=== PATIENT | male | born 1990 | race African-American/Black ===

== ENCOUNTER 2016-11-16 10:43 | Emergency (ER) | payer OTHER ==
[~2016-11-16] VITALS: Ht 170.2 cm; Wt 86.2 kg
--- NOTE | 2016-11-16 11:17 | PHYS DOC ---
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 Pt states L groin pain x 3 days radiating to testicle. Had to pass PT test last week, has had dramatic increase in physical activity recently. Denies feeling a pop in groin, pain primarily when pt first gets out of bed, with bearing down/coughing/lifting, sx are relieved completely with supine position. No urine or bowel sx, no testicular skin changes. Pt feels "swollen" at times left groin. OTC meds not helping, no penile discharge/dysuria no known injury. Timing/Duration: other (3 days intermittent) Severity/Quality: moderate, aching, throbbing Location: groin Radiation: scrotal Activities at Onset: physical activity Prior Genitourinary Problems: none (R torsion s/p removal) Modifying Factors: worse with breathing, worse with coughing, worse with defecating, worse with exercise, improves with lying down, worse with palpation , improves with rest Associated Symptoms: other Allergies: Coded Allergies: No Known Drug Allergies (Unverified , 03/28/16) Past Medical History Medical History: other (R testicular torsion s/p removal) Surgical History: other Social History Smoker: non-smoker Alcohol: none Drugs: none Review of Systems Constitutional: denies chills, denies fever Respiratory: denies cough, denies shortness of breath Cardiovascular: denies chest pain, denies palpitations Gastrointestinal: see HPI, denies diarrhea, denies nausea, denies vomiting Genitourinary: see HPI Musculoskeletal: denies back pain, denies joint swelling, denies neck pain Psychiatric/Neurological: denies headache, denies numbness, denies paresthesia Physical Exam General Appearance: WD/WN, no apparent distress Neck: non-tender, supple Cardiovascular/Respiratory: normal peripheral pulses, no respiratory distress Gastrointestinal: normal bowel sounds, non tender, soft Male Genitals: normal genitalia, hernia mass (reducible left side with TTP), other (no "blue dot" or testicular TTP) Back: no CVA tenderness, no vertebral tenderness Extremities: non-tender, normal inspection Neurologic/Psychiatric: alert, normal mood/affect, oriented x 3 Skin: normal color, warm/dry Orders, Labs, Meds I discussed need for surgical consult. Discussed s/s to monitor, indications to return. See departure instructions. Departure Time of Disposition: 11:13 Disposition: 01 HOME, SELF-CARE Diagnosis: reducible left inguinal hernia Condition: STABLE Patient Instructions: Inguinal Hernia, Adult Additional Instructions: No physical exertion or workouts, no lifting greater than 15 pounds until cleared by General Surgeon. Please review the patient education materials re: hernia. OTC ibuprofen as needed. Rx: norco 5mg #10 (increase fluids and take OTC stool softeners to avoid constipation) Due to constraints I am unable to refer you to a general surgeon. Please follow up today at [facility] with these discharge instructions to schedule General Surgery evaluation. Return to ED with new or changing symptoms, and specifically if the discomfort may not be relieved with positional changes as discussed. CHLOE COLLAZO DO Nov 16, 2016 11:17
[2016-11-16] MEDS ORDERED: HYDR-971 PO (11:18)
[2016-11-16 11:25] VITALS: BP 104/59
== END 2016-11-16 11:34 | disposition home or self-care (01) ==
LOC: ER 10:43
DX: K40.90 Unilateral inguinal hernia, without obstruction or gangrene, not specified as recurrent (principal)
CPT/HCPCS: 99283

== ENCOUNTER 2017-10-18 17:01 | Emergency (ER) | payer OTHER ==
[~2017-10-18] VITALS: Ht 170.2 cm; Wt 83.9 kg
[2017-10-18 17:01] VITALS: BP 126/61
[~2017-10-18 17:01] MED LIST: HYDR-971 PO
--- NOTE | 2017-10-18 18:05 | ED.ADGEN ---
Past History Past Medical History: No Pertinent History Past Surgical History: Other Alcohol Use: Occasionally Drug Use: None Adult General Chief Complaint Chief Complaint " The slide recoil on my 9 mm caught my Rt. thumb during firearm practice...".. 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 Distal neurovascular intact. Injury occurred while training on the 9mm pistol at [employer]. Patient denies any other injury. Patient washed lesion immediately. On arrival laceration re- washed l in the emergency department. Patient does not remember his last tetanus but it was in excess of 3 years less than 10 yrs. Review of Systems Review of Systems Constitutional: Denies fever or chills [] Eyes: Denies change in visual acuity, redness, or eye pain [] HENT: Denies nasal congestion or sore throat [] Respiratory: Denies cough or shortness of breath [] Cardiovascular: No additional information not addressed in HPI [] GI: Denies abdominal pain, nausea, vomiting, bloody stools or diarrhea [] : Denies dysuria or hematuria [] Musculoskeletal: Denies back pain or joint pain [] Integument: Denies rash or skin lesions []complaints of laceration right dorsal thumb Neurologic: Denies headache, focal weakness or sensory changes [] Endocrine: Denies polyuria or polydipsia [] All other systems were reviewed and found to be within normal limits, except as documented in this note. Family History Family History Noncontributory Current Medications Current Medications Current Medications Medications (Trade) Dose Ordered Sig/Lavon Start Time Stop Time Status Last Admin Dose Admin Bupivacaine HCl (Sensorcaine Mpf 0.5%) 10 ml 1X ONCE 10/18/17 18:30 10/18/17 18:30 DC 10/18/17 18:10 10 ML Lidocaine HCl 20 ml 1X ONCE 10/18/17 18:30 10/18/17 18:30 DC 10/18/17 18:10 20 ML Tetanus/ Diphtheria Toxoids Adsorbed (Tenivac Vial) 0.5 ml ONCE ONCE 10/18/17 18:30 10/18/17 18:30 DC 10/18/17 18:20 0.5 ML Allergies Allergies Allergies Coded Allergies Type Severity Reaction Last Updated Verified No Known Drug Allergies 03/28/16 No Physical Exam Physical Exam Constitutional: Well developed, well nourished, no acute distress, non-toxic appearance. [] HENT: Normocephalic, atraumatic, bilateral external ears normal, oropharynx moist, no oral exudates, nose normal. [] Eyes: PERRLA, EOMI, conjunctiva normal, no discharge. [] Neck: Normal range of motion, no tenderness, supple, no stridor. [] Cardiovascular:Heart rate regular rhythm, no murmur [] Lungs & Thorax: Bilateral breath sounds clear to auscultation [] Abdomen: Bowel sounds normal, soft, no tenderness, no masses, no pulsatile masses. [] Skin: Warm, dry, no erythema, no rash. [] Laceration right thumb as per history of present illness. Multiple tattoos. Back: No tenderness, no CVA tenderness. [] Extremities: No tenderness, no cyanosis, no clubbing, ROM intact, no edema. [] Neurologic: Alert and oriented X 3, normal motor function, normal sensory function, no focal deficits noted. [] Psychologic: Affect anxious, judgement normal, mood normal. [] Current Patient Data Vital Signs Vital Signs Date Time Temp Pulse Resp B/P (MAP) Pulse Ox O2 Delivery O2 Flow Rate FiO2 10/18/17 17:01 98.6 87 18 97 Room Air EKG EKG [] Radiology/Procedures Radiology/Procedures [] Course & Med Decision Making Course & Med Decision Making Pertinent Labs and Imaging studies reviewed. (See chart for details). Discussed options treatment patient. Patient elects sutures. Procedure note- laceration cleaned with soap and water, Betadine to edge laceration. Injected edge laceration with lidocaine 2% and received a digital block with Sensorcaine. Re- irrigated laceration in range of motion with normal saline. Closed laceration with 4-0 Prolene x 5, dressing applied with bactracin ointment. Patient keep laceration clean and dry. May remove dressing in 3 days if it does not become wet. If it becomes wet must be removed immediately. After removal laceration dressing to apply Polysporin 4 times a day & Band-Aid. Sutures out in 10 days. Return if any concerns. Follow-up primary care. [] Final Impression Final Impression 1. 2.5 cm laceration dorsum of Rt thumb[] Dragon Disclaimer Dragon Disclaimer This electronic medical record was generated, in whole or in part, using a voice recognition dictation system. LINNEA CARRILLO MD Oct 18, 2017 18:05
[2017-10-18] MEDS ORDERED: BACI28.34 TP (18:09)
[2017-10-18] MEDS ORDERED: BUPIVACAINE MPF 0.5% 30 ML VIAL. ONE (18:14)
[2017-10-18] MEDS ORDERED: BUPIVACAINE MPF 0.5% 30 ML VIAL. IJ ONE (18:30)
[2017-10-18] MEDS ORDERED: BUPIVACAINE MPF 0.5% 10 ML VIAL. IJ ONE (18:30)
[2017-10-18] MEDS ORDERED: TETANUS AND DIPHTHERIA TOX/PF 0.5 ML VIAL. VAX IM ONE (18:30)
[2017-10-18] MEDS ORDERED: LIDOCAINE 2% 20 ML VIAL. IJ ONE (18:30)
== END 2017-10-18 18:25 | disposition home or self-care (01) ==
LOC: ER 17:01
DX: S61.011A Laceration without foreign body of right thumb without damage to nail, initial encounter (principal); W33.19XA Accidental malfunction of other larger firearm, initial encounter; Y93.89 Activity, other specified; Y92.89 Other specified places as the place of occurrence of the external cause; Y99.8 Other external cause status
CPT/HCPCS: 12001; 90471; 90714; 99283; J3490; J2001

== ENCOUNTER 2017-12-16 19:46 | Emergency (ER) | payer OTHER ==
[~2017-12-16] VITALS: Ht 167.6 cm; Wt 85.3 kg
[~2017-12-16 19:46] MED LIST changes: +BACI28.34 TP
[2017-12-16 20:28] VITALS: BP 121/57
--- NOTE | 2017-12-16 21:07 | PHYS DOC ---
Past History Past Medical History: No Pertinent History Past Surgical History: Other Alcohol Use: Occasionally Drug Use: None Adult General Chief Complaint Chief Complaint: DENTAL PROBLEM HPI HPI 27-year-old male presents with right lower quadrant dental pain. The patient had a tooth removed about a week ago. He had been doing well, but the pain has been increasing throughout the day. He is already taking amoxicillin to prevent infection. He is preparing to have an implant put in the end of next week. The patient is requesting pain medication until he can get to his dentist on Monday. He denies fever or chills. The pain is a deep aching sensation. He works at the local [employer] and all of the sound amplifies the pain. He has no other complaints. Review of Systems Review of Systems Constitutional: Denies fever or chills [] Eyes: Denies change in visual acuity, redness, or eye pain [] HENT: Right lower quadrant abdominal pain[] Respiratory: Denies cough or shortness of breath [] Cardiovascular: No additional information not addressed in HPI [] GI: Denies abdominal pain, nausea, vomiting, bloody stools or diarrhea [] : Denies dysuria or hematuria [] Musculoskeletal: Denies back pain or joint pain [] Integument: Denies rash or skin lesions [] Neurologic: Denies headache, focal weakness or sensory changes [] Endocrine: Denies polyuria or polydipsia [] All other systems were reviewed and found to be within normal limits, except as documented in this note. Allergies Allergies Allergies Coded Allergies Type Severity Reaction Last Updated Verified No Known Drug Allergies 03/28/16 No Physical Exam Physical Exam Constitutional: Well developed, well nourished, no acute distress, non-toxic appearance. [] HENT: Normocephalic, atraumatic, bilateral external ears normal, oropharynx moist, no oral exudates, nose normal. Sutures over a recent tooth extraction the right lower quadrant, no obvious infection or abscess.[] Eyes: PERRLA, EOMI, conjunctiva normal, no discharge. [] Neck: Normal range of motion, no tenderness, supple, no stridor. [] Cardiovascular:Heart rate regular rhythm, no murmur [] Lungs & Thorax: Bilateral breath sounds clear to auscultation [] Abdomen: Bowel sounds normal, soft, no tenderness, no masses, no pulsatile masses. [] Skin: Warm, dry, no erythema, no rash. [] Back: No tenderness, no CVA tenderness. [] Extremities: No tenderness, no cyanosis, no clubbing, ROM intact, no edema. [] Neurologic: Alert and oriented X 3, normal motor function, normal sensory function, no focal deficits noted. [] Psychologic: Affect normal, judgement normal, mood normal. [] Current Patient Data Vital Signs Vital Signs Date Time Temp Pulse Resp B/P (MAP) Pulse Ox O2 Delivery O2 Flow Rate FiO2 12/16/17 20:28 98.4 74 16 99 Room Air EKG EKG [] Radiology/Procedures Radiology/Procedures [] Course & Med Decision Making Course & Med Decision Making Pertinent Labs and Imaging studies reviewed. (See chart for details) I reviewed the narcotic database and the patient has no records. He has recently had dental surgery as the sutures are still in place. He is tender to palpation as expected in this area. I do not see signs of infection and the patient is already on an antibiotic. I will not modifies antibiotic regimen but I will provide him a short course of Jackson 5/325 for pain. He is stable for discharge at this time. [] Dragon Disclaimer Dragon Disclaimer This electronic medical record was generated, in whole or in part, using a voice recognition dictation system. Departure Departure: Referrals: ABIMBOLA GABRIEL DO, M[facility] (PCP) MAY LALA DO Dec 16, 2017 21:07
[2017-12-16] MEDS ORDERED: HYDR-971 PO (21:13)
[2017-12-16] MEDS ORDERED: HYDROcodone/APAP 5/325MG 1 TAB TABLET PO ONE (21:15)
== END 2017-12-16 21:25 | disposition home or self-care (01) ==
LOC: ER 19:46
DX: K08.89 Other specified disorders of teeth and supporting structures (principal); G89.18 Other acute postprocedural pain
CPT/HCPCS: 99283

== ENCOUNTER 2018-01-11 03:50 | Emergency (ER) | payer OTHER ==
[~2018-01-11] VITALS: Ht 167.6 cm; Wt 83.9 kg
--- NOTE | 2018-01-11 03:56 | ED.ADGEN ---
Past History Past Medical History: No Pertinent History Past Surgical History: Other Past Surgical History Lt Hernia inguinal, undescended testicle right Alcohol Use: Occasionally Drug Use: None Adult General Chief Complaint Chief Complaint ".. I went thru. a bad break up.. and I started drinking heavy this week.. and I got to puking.. and my stomach started hurting.. 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 Pt. actively vomiting at this time. Patient denies previous history of pancreatitis. Patient has been consuming large amounts of alcohol the last few days. Patient denies any dark or tarry stools. Patient denies any intake of bad food. Patient denies any travel or specific ill contacts. 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 Patient is up-to-date with vaccinations. Patient is normally healthy. Patient works the [employer] at [place]. Patient has had left inguinal hernia repair and right undescended testicle repair. Review of Systems Review of Systems Constitutional: Denies fever or chills [] Eyes: Denies change in visual acuity, redness, or eye pain [] HENT: Denies nasal congestion or sore throat [] Respiratory: Denies cough or shortness of breath [] Cardiovascular: No additional information not addressed in HPI [] GI: Complaints of epigastric abdominal pain, nausea, vomiting,. Denies bloody stools or diarrhea [] : Denies dysuria or hematuria [] Musculoskeletal: Denies back pain or joint pain [] Integument: Denies rash or skin lesions [] Neurologic: Denies headache, focal weakness or sensory changes [] Endocrine: Denies polyuria or polydipsia [] All other systems were reviewed and found to be within normal limits, except as documented in this note. Family History Family History Noncontributory Current Medications Current Medications Current Medications Medications (Trade) Dose Ordered Sig/Lavon Start Time Stop Time Status Last Admin Dose Admin Famotidine (Pepcid Vial) 20 mg 1X ONCE 01/11/18 04:45 01/11/18 04:46 DC 01/11/18 05:18 20 MG Folic Acid (FOLIC ACID SYRINGE for ER) 5 mg STK-MED ONCE 01/11/18 05:09 01/11/18 05:10 DC Lactated Ringer's 1,000 ml @ 1,000 mls/hr Q1H 01/11/18 04:18 01/11/18 05:17 DC 01/11/18 04:28 1,000 MLS/HR Magnesium Hydroxide (Milk Of Magnesia) 2,400 mg 1X ONCE 01/11/18 04:45 01/11/18 04:46 DC 01/11/18 05:16 2,400 MG Morphine Sulfate (Morphine 10mg Syringe) 10 mg 1X ONCE 01/11/18 04:45 01/11/18 04:46 DC 01/11/18 05:13 10 MG Multivitamins/ Minerals (Infuvite Adult) 10 ml STK-MED ONCE 01/11/18 05:09 01/11/18 05:10 DC Multivitamins/ Minerals 10 ml/ Folic Acid 1 mg/ Thiamine HCl 100 mg/Lactated Ringer's 1,011.2 ml @ 1,011.2 mls/hr 1X ONCE 01/11/18 04:45 01/11/18 05:44 DC 01/11/18 05:38 1,011.2 MLS/HR Ondansetron HCl (Zofran) 8 mg 1X ONCE 01/11/18 04:45 01/11/18 04:46 DC 01/11/18 05:17 8 MG Thiamine HCl (Thiamine Vial) 200 mg STK-MED ONCE 01/11/18 05:09 01/11/18 05:10 DC Allergies Allergies Allergies Coded Allergies Type Severity Reaction Last Updated Verified No Known Drug Allergies 03/28/16 No Physical Exam Physical Exam Constitutional: Well developed, well nourished, in acute distress, non-toxic appearance. [] HENT: Normocephalic, atraumatic, bilateral external ears normal, oropharynx moist, no oral exudates, nose normal. [] Eyes: PERRLA, EOMI, conjunctiva normal, no discharge. [] Neck: Normal range of motion, no tenderness, supple, no stridor. [] Cardiovascular: Tachycardia Heart rate regular rhythm, no murmur [] Lungs & Thorax: Bilateral breath sounds equal at apex with few scattered wheezes on auscultation [] Abdomen: Bowel sounds hyperactive, soft, a gastric tenderness, no masses, no pulsatile masses. [] Rebound to epigastric area. Bilateral groin scars. Testicles nontender. Circumcised male. Skin: Warm, dry, no erythema, no rash. Tattoos Back: No tenderness, no CVA tenderness. [] Extremities: No tenderness, no cyanosis, no clubbing, ROM intact, no edema. [] No psoas or obturator sign. Neurologic: Alert and oriented X 3, normal motor function, normal sensory function, no focal deficits noted. []DTRs are +2 at patella and brachial. Psychologic: Affect anxious, judgement normal, mood normal. [] Current Patient Data Vital Signs Vital Signs Date Time Temp Pulse Resp B/P (MAP) Pulse Ox O2 Delivery O2 Flow Rate FiO2 01/11/18 06:44 72 18 128/48 (74) 97 Room Air 01/11/18 04:07 98.0 Lab Results Laboratory Tests Test 01/11/18 04:31 White Blood Count 6.4 x10^3/uL (4.0-11.0) Red Blood Count 4.94 x10^6/uL (4.30-5.70) Hemoglobin 13.9 g/dL (13.0-17.5) Hematocrit 42.3 % (39.0-53.0) Mean Corpuscular Volume 86 fL (79-100) Mean Corpuscular Hemoglobin 28 pg (25-35) Mean Corpuscular Hemoglobin Concent 33 g/dL (31-37) Red Cell Distribution Width 14.3 % (11.5-14.5) Platelet Count 273 x10^3/uL (140-400) Neutrophils (%) (Auto) 35 % (31-73) Lymphocytes (%) (Auto) 55 % (24-48) H Monocytes (%) (Auto) 7 % (0-9) Eosinophils (%) (Auto) 2 % (0-3) Basophils (%) (Auto) 1 % (0-3) Neutrophils # (Auto) 2.3 x10^3uL (1.8-7.7) Lymphocytes # (Auto) 3.5 x10^3/uL (1.0-4.8) Monocytes # (Auto) 0.5 x10^3/uL (0.0-1.1) Eosinophils # (Auto) 0.1 x10^3/uL (0.0-0.7) Basophils # (Auto) 0.0 x10^3/uL (0.0-0.2) Prothrombin Time 10.4 SEC (9.4-11.4) Prothrombin Time INR 1.0 (0.9-1.1) PTT 25 SEC (23-33) Sodium Level 141 mmol/L (136-145) Potassium Level 3.5 mmol/L (3.5-5.1) Chloride Level 106 mmol/L (98-107) Carbon Dioxide Level 26 mmol/L (21-32) Anion Gap 9 (6-14) Blood Urea Nitrogen 9 mg/dL (8-26) Creatinine 0.9 mg/dL (0.7-1.3) Estimated GFR (Cockcroft-Gault) 124.4 Glucose Level 99 mg/dL (70-99) Calcium Level 8.5 mg/dL (8.5-10.1) Total Bilirubin 0.4 mg/dL (0.2-1.0) Direct Bilirubin 0.1 mg/dL (0.0-0.2) Aspartate Amino Transferase (AST) 21 U/L (15-37) Alanine Aminotransferase (ALT) 33 U/L (16-63) Alkaline Phosphatase 60 U/L (46-116) Total Protein 7.1 g/dL (6.4-8.2) Albumin 3.6 g/dL (3.4-5.0) Amylase Level 61 U/L (25-115) Lipase 99 U/L (73-393) Ethyl Alcohol Level 54 mg/dL (0-10) H EKG EKG [] Radiology/Procedures Radiology/Procedures I interpretation of acute abdomen film shows no acute cardiopulmonary findings. No free air under the diaphragm does have stool in the colon. Does have surgical clips in left lower abdomen. Nontender obstructive bowel gas pattern.[] Course & Med Decision Making Course & Med Decision Making Pertinent Labs and Imaging studies reviewed. (See chart for details) Patient to stop alcohol use. Patient avoid caffeine and NSAIDs. Patient take Tylenol 500-4 times a day for pain. Take Zantac 50 mg twice a day. Patient to consider alcohol abuse programs. Patient return if any concerns. [] Final Impression Final Impression 1. Nausea and Vomiting 2. Epigastric pain-suspect alcoholic gastritis 3. Alcohol Abuse[] Dragon Disclaimer Dragon Disclaimer This electronic medical record was generated, in whole or in part, using a voice recognition dictation system. LINNEA CARRILLO MD Jan 11, 2018 03:55
[2018-01-11] MEDS ORDERED: IV RINGERS SOLUTION,LACTATED 1,000 ML IV SCH (04:18)
[2018-01-11] MEDS ORDERED: ONDA8TAB12 PO (04:28)
[2018-01-11] MEDS ORDERED: ACET500T68 PO (04:28)
[2018-01-11] MEDS ORDERED: RANI150T21 PO (04:28)
[2018-01-11] MEDS ORDERED: MAGNESIUM HYDROXIDE 2,400 MG/30 ML ORAL.SUSP. PO ONE (04:45)
[2018-01-11] MEDS ORDERED: ONDANSETRON PF 4 MG/2 ML VIAL. IV ONE (04:45)
[2018-01-11] MEDS ORDERED: MVI, ADULT NO.4 WITH VIT K 10 ML, FOLIC ACID SYRINGE for ER 1 MG, THIAMINE INJ 100 MG i... IV ONE ×4 (04:45)
[2018-01-11] MEDS ORDERED: FAMOTIDINE 20 MG/2 ML VIAL IVP ONE (04:45)
[2018-01-11] MEDS ORDERED: MORPHINE SULFATE 10 MG/ML SYRINGE. SQ ONE (04:45)
[2018-01-11 04:52] LABS: BASO % 1 % (0-3); EOS # 0.1 x10^3/uL (0.0-0.7); EOS % 2 % (0-3); HEMATOCRIT 42.3 % (39.0-53.0); HEMOGLOBIN 13.9 g/dL (13.0-17.5); LYMPH # 3.5 x10^3/uL (1.0-4.8); LYMPH % 55 % (24-48); MEAN CORPUSCULAR HEMOGLOBIN 28 pg (25-35); MEAN CORPUSCULAR HGB CONC 33 g/dL (31-37); MEAN CORPUSCULAR VOLUME 86 fL (79-100); MONO # 0.5 x10^3/uL (0.0-1.1); MONO % 7 % (0-9); NEUT # 2.3 x10^3uL (1.8-7.7); NEUT % 35 % (31-73); PLATELET COUNT 273 x10^3/uL (140-400); RED BLOOD COUNT 4.94 x10^6/uL (4.30-5.70); RED CELL DISTRIBUTION WIDTH 14.3 % (11.5-14.5); WHITE BLOOD COUNT 6.4 x10^3/uL (4.0-11.0)
[2018-01-11 05:00] LABS: ALBUMIN 3.6 g/dL (3.4-5.0); CALCIUM 8.5 mg/dL (8.5-10.1); CREATININE 0.9 mg/dL (0.7-1.3); DIRECT BILIRUBIN 0.1 mg/dL (0.0-0.2); GFR 124.4; POTASSIUM 3.5 mmol/L (3.5-5.1); TOTAL BILIRUBIN 0.4 mg/dL (0.2-1.0); TOTAL PROTEIN 7.1 g/dL (6.4-8.2)
[2018-01-11] MEDS ORDERED: FOLIC ACID 5 MG/ML SYRINGE for ER IV ONE (05:09)
[2018-01-11] MEDS ORDERED: THIAMINE 200 MG/2 ML VIAL. IV ONE (05:09)
[2018-01-11] MEDS ORDERED: MVI, ADULT NO.4 WITH VIT K 10 ML VIAL IV ONE (05:09)
[2018-01-11 06:44] VITALS: BP 128/48
--- NOTE | 2018-01-11 07:48 | RAD ---
Acute abdomen series with chest, 3 views, 01/11/2018: HISTORY: Left-sided abdominal pain, nausea, vomiting Gas is present in large and small bowel in a nonspecific pattern. No free air seen in the abdomen. There is no evidence organomegaly. Radiopacities overlying the left lower pelvis may represent artifacts or surgical wires. The heart size is normal. The lungs are clear. There is no evidence of pleural fluid. IMPRESSION: No acute abdominal abnormality is detected. Electronically signed by: Smith Rodriguez MD (01/11/2018 7:45 AM) [facility]
== END 2018-01-11 07:15 | disposition home or self-care (01) ==
LOC: ER 03:50
DX: R11.2 Nausea with vomiting, unspecified (principal); R10.13 Epigastric pain; F10.10 Alcohol abuse, uncomplicated; Y90.2 Blood alcohol level of 40-59 mg/100 ml
CPT/HCPCS: 36415; 74022; 80048; 80076; 82150; 83690; 85025; 85610; 85730; 96361; 96365; 96372; 96375; 99285; G0480; J2270; J2405; J7120; S0028